=== PATIENT | male | born 1995 | race African-American/Black ===

== ENCOUNTER 2021-11-09 02:23 | Emergency (ER) | payer MEDICAID ==
[~2021-11-09] VITALS: Ht 177.8 cm; Wt 79.4 kg
[2021-11-09 02:40] VITALS: BP 118/80
--- NOTE | 2021-11-09 02:56 | NUR ---
PT TAKEN TO BED 3
--- NOTE | 2021-11-09 03:51 | NUR ---
Dr. Gloria examining patient.
[2021-11-09] MEDS ORDERED: cephALEXin 500 MG CAP PO ONE (04:00)
[2021-11-09] MEDS ORDERED: PANTOPRAZOLE 40 MG TABEC PO ONE (04:05)
[2021-11-09] MEDS ORDERED: KETOROLAC 60 MG/2 ML VIAL IM ONE (04:05)
--- NOTE | 2021-11-09 05:10 | NUR ---
Note jovitaone in EDM - 11/09/21 at 0511 by [email or web address] Patient discharged with v/s stable. Written and verbal after care instructions given and explained. Patient alert, oriented and verbalized understanding of instructions. Ambulatory with steady gait. All questions addressed prior to discharge. ID band removed. Patient advised to follow up with PMD. Rx of given. Patient educated on indication of medication including possible reaction and side effects. Opportunity to ask questions provided and answered.
[2021-11-09] MEDS ORDERED: CEPH-588 PO (05:54)
[2021-11-09 06:10] VITALS: BP 105/74
== END 2021-11-09 06:11 | disposition home or self-care (01) ==
LOC: MED 02:23
DX: N39.0 Urinary tract infection, site not specified (principal); R31.9 Hematuria, unspecified; K21.9 Gastro-esophageal reflux disease without esophagitis; Z79.899 Other long term (current) drug therapy; Z88.6 Allergy status to analgesic agent
CPT/HCPCS: 74176; 81002; 96372; 99284; J1885

== ENCOUNTER 2021-12-20 23:35 | Emergency (ER) | payer MEDICAID ==
[~2021-12-20] VITALS: Ht 177.8 cm; Wt 71.8 kg
[~2021-12-20 23:35] MED LIST: CEPH-588 PO
[2021-12-20 23:42] VITALS: BP 119/81
--- NOTE | 2021-12-20 23:46 | NUR ---
WALKED IN C/O LEFT KNEE PAIN X5 DAYS THAT STARTED WHILE RUNNING. PT DENIES TRAUMA/ INJURY. PT STATES HE HAS BEEN TAKING ASA. PT WITH ODOR OF MARIJUANA ON CLOTHING AND GLOSSY/RED EYES. +SWELLING TO LEFT KNEE PMH GASTRITIS
--- NOTE | 2021-12-21 00:03 | NUR ---
PT RETURN FROM RADIOLOGY
--- NOTE | 2021-12-21 00:36 | NUR ---
IN TRIAGE FOR MSE
[2021-12-21] MEDS ORDERED: PANTOPRAZOLE 40 MG TABEC PO ONE (01:05)
[2021-12-21] MEDS ORDERED: KETOROLAC 60 MG/2 ML VIAL IM ONE (01:05)
[2021-12-21] MEDS ORDERED: KETO10TA2 PO (01:07)
[2021-12-21 01:56] VITALS: BP 118/81
--- NOTE | 2021-12-21 01:56 | NUR ---
Patient discharged with v/s stable. Written and verbal after care instructions given and explained for Acute Knee pain. Patient alert, oriented and verbalized understanding of instructions. Ambulatory with steady gait. All questions addressed prior to discharge. ID band removed. Patient advised to follow up with PMD. Rx of Ketorolac given. Patient educated on indication of medication including possible reaction and side effects. Opportunity to ask questions provided and answered.
== END 2021-12-21 01:56 | disposition home or self-care (01) ==
LOC: MED 23:35
DX: M25.462 Effusion, left knee (principal); K21.9 Gastro-esophageal reflux disease without esophagitis; Z79.899 Other long term (current) drug therapy; Z88.6 Allergy status to analgesic agent
CPT/HCPCS: 73562; 96372; 99283; J1885

== ENCOUNTER 2021-12-21 17:10 | Emergency (ER) | payer MEDICAID ==
[~2021-12-21] VITALS: Ht 177.8 cm; Wt 69.4 kg
[~2021-12-21 17:10] MED LIST changes: +KETO10TA2 PO
--- NOTE | 2021-12-21 17:32 | NUR ---
PT CALLED NOT IN LOBBY
--- NOTE | 2021-12-21 17:44 | NUR ---
PT CALLED NOT IN LOBBY OR OUTSIDE
--- NOTE | 2021-12-21 17:51 | NUR ---
NOT FOUND IN LOBBY PATIENT LEFT WITHOUT BEING SEEN BY DR. LEONARDO. NO FURTHER CARE PROVIDED FOR PATIENT.
--- NOTE | 2021-12-21 18:29 | NUR ---
PT LEFT CAME BACK FOR ER MD SARAH.
[2021-12-21 18:46] VITALS: BP 132/85
[2021-12-21 20:27] LABS: BASOPHILS % (AUTO) 0.3 % (0.0-2.0); EOSINOPHILS # (AUTO) 0.1 K/uL (0-0.4); EOSINOPHILS % (AUTO) 0.5 % (0.0-4.0); HEMATOCRIT 44.3 % (36-52); HEMOGLOBIN 14.8 g/dL (12.0-18.0); LYMPHOCYTES # (AUTO) 1.6 K/uL (2.0-11.5); LYMPHOCYTES % (AUTO) 13.4 % (20.5-51.1); MEAN CORPUSCULAR HEMOGLOBIN 32 pg (27-31); MEAN CORPUSCULAR HGB CONC 33 g/dL (33-37); MEAN CORPUSCULAR VOLUME 96.6 fL (80-94); MONOCYTES % (AUTO) 8.5 % (1.7-9.3); NEUTROPHILS # (AUTO) 9.2 K/uL (1.8-7.7); NEUTROPHILS % (AUTO) 77.3 % (42.2-75.2); PLATELET COUNT (AUTO) 254 K/uL (140-450); RED BLOOD CELL COUNT(AUTO) 4.59 MIL/uL (4.20-6.10); RED CELL DISTRIBUTION WIDTH 14.1 % (11.6-13.7); WHITE BLOOD COUNT (AUTO) 11.9 K/uL (4.8-10.8)
[2021-12-21 20:48] LABS: ALBUMIN 3.9 g/dL (3.4-5.0); ANION GAP 12.4 (8-16); CARBON DIOXIDE 29.3 mmol/L (21-32); POTASSIUM 3.7 mmol/L (3.5-5.1); TOTAL BILIRUBIN 1.3 mg/dL (0.0-1.0)
[2021-12-21 21:15] LABS: CREATININE 1.1 mg/dL (0.6-1.3)
--- NOTE | 2021-12-21 22:38 | NUR ---
AVERY GAYLE CALLED PT IN LOBBY AND OUTSIDE NO ANSWER.
--- NOTE | 2021-12-21 22:38 | NUR ---
PATIENT ELOPED FROM FACILITY. DISCHARGE INSTRUCTIONS NOT GIVEN TO PATIENT. DR. GAYLE NOTIFIED.
== END 2021-12-21 22:38 | disposition left against medical advice (07) ==
LOC: MED 17:10
DX: S83.92XA Sprain of unspecified site of left knee, initial encounter (principal); X58.XXXA Exposure to other specified factors, initial encounter; Y93.89 Activity, other specified; Y92.89 Other specified places as the place of occurrence of the external cause; Y99.8 Other external cause status
CPT/HCPCS: 36415; 80053; 85025; 85651; 86140; 99283